=== PATIENT | male | born 1960 | race Caucasian/White ===

== ENCOUNTER 2017-02-25 13:27 | Outpatient (CLI) | payer OTHER ==
[2017-02-25 18:15] LABS: CHOL/HDL RATIO 5.9 (<5.0); CHOLESTEROL 199 mg/dL; HDL CHOLESTEROL 34 mg/dL; LDL/HDL RATIO 2.6 (<3.6); TRIGLYCERIDES 376 mg/dL; VLDL CHOLESTEROL 75 mg/dL
[2017-02-25 18:40] LABS: HEMOGLOBIN A1C 0.6 g/dL
== END 2017-02-25 13:28 | disposition home or self-care (01) ==
LOC: LAB.F 13:27
PROVIDERS: ATTEND Internal Medicine
DX: Z13.220 Encounter for screening for lipoid disorders (principal); Z13.1 Encounter for screening for diabetes mellitus
CPT/HCPCS: 36415; 80061; 83036